=== PATIENT | male | born 1955 | race Two or more races ===

== ENCOUNTER 2024-08-10 12:20 | Emergency (ER) | payer OTHER ==
[~2024-08-10] VITALS: Ht 162.6 cm; Wt 82.0 kg
[2024-08-10 13:03] VITALS: BP 118/58; PULSE 59; RESP 16; TEMP 98.3; O2SAT 96
[2024-08-10] MEDS ORDERED: CEPH500T PO (14:11)
[2024-08-10] MEDS ORDERED: TETANUS-DIPTH-ACEL PERTUSSIS 0.5ML SYR Tdap IM ONE (14:15)
[2024-08-10] MEDS ORDERED: IBUPROFEN 800 MG TAB PO ONE (14:15)
== END 2024-08-10 14:12 | disposition home or self-care (01) ==
LOC: ER 12:20
DX: S91.202A Unspecified open wound of left great toe with damage to nail, initial encounter (principal); E11.9 Type 2 diabetes mellitus without complications; I10 Essential (primary) hypertension; E78.5 Hyperlipidemia, unspecified; Z88.6 Allergy status to analgesic agent; Z86.73 Personal history of transient ischemic attack (TIA), and cerebral infarction without residual deficits; W18.2XXA Fall in (into) shower or empty bathtub, initial encounter; Y93.89 Activity, other specified; Y92.89 Other specified places as the place of occurrence of the external cause; Y99.8 Other external cause status
CPT/HCPCS: 11730